=== PATIENT | female | born 1955 | race Hispanic/Latino ===

== ENCOUNTER 2025-02-17 19:43 | Emergency (ER) | payer MEDICARE ==
[~2025-02-17] VITALS: Ht 157.5 cm; Wt 83.0 kg
[~2025-02-17 19:43] MED LIST: AMLODIPINE BESYL5 MG PO; ASPIRIN81 MG PO; COREG6.25 MG PO; LISINOPRIL-HCT1 EAC2
[2025-02-17 19:58] VITALS: TEMP 99.7
[2025-02-17] MEDS ORDERED: SODIUM CHLORIDE FLUSH 10 ML SYR IV PRN (20:15)
[2025-02-17 20:33] LABS: BASOPHILS % 0.4 % (0.0-1.0); EOSINOPHILS % 1.8 % (0.0-6.0); LYMPHOCYTES % 32.2 % (18.0-39.1); MONOCYTES % 6.2 % (4.4-11.3); NEUTROPHILS % 59.3 % (38.7-80.0); RED CELL DISTRIBUTION WIDTH 11.8 % (11.7-14.4)
[2025-02-17 20:54] LABS: EST GLOMERULAR FILTRATION RATE 94.0 ML/MIN (>=60)
[2025-02-17 21:45] VITALS: PULSE 64; RESP 17
[2025-02-17 23:49] VITALS: BP 150/93; PULSE 60; RESP 16; TEMP 97.7; O2SAT 100
== END 2025-02-18 00:12 | disposition home or self-care (01) ==
LOC: ER 20:36
DX: R42 Dizziness and giddiness (principal); I10 Essential (primary) hypertension; Z96.642 Presence of left artificial hip joint
CPT/HCPCS: 36415; 71045; 80053; 83880; 84484; 85025; 93005; 94760; 99284